=== PATIENT | male | born 1980 ===

== ENCOUNTER → 2024-08-04 | Outpatient (CLI) | payer OTHER ==
[~2024-08-04] MED LIST: TRAMADOL HCL50 MG PO
[2024-08-04 09:33] LABS: HEMATOCRIT 42.6 % (39.0-48.0); HEMOGLOBIN 14.8 g/dL (13-16.00); MEAN CELL VOLUME 82.8 fL (80.0-100.00); MEAN CORPUSCULAR HEMOGLOBIN 28.8 pg (27.00-32.0); MEAN CORPUSCULAR HGB CONC 34.8 g/dl (32.0-36.0); PLATELET COUNT 240 K/uL (150-450); RED BLOOD COUNT 5.14 M/uL (4.00-6.00); RED CELL DISTRIBUTION WIDTH 13.2 % (11.5-14.5)
[2024-08-04 10:04] LABS: ALBUMIN 4.3 gm/dL (3.4-5.0); BILIRUBIN TOTAL 0.5 mg/dL (0.3-1.2); CALCIUM 9.7 mg/dL (8.5-10.1); CHOL HDL RATIO 3.4 (0-5.0); CREATININE SERUM 1.01 mg/dL (0.70-1.30); GFR 80.25; GLOBULINA 3.6 G/DL (2.4-3.5); POTASSIUM 4.3 mEq/L (3.5-5.1); TOTAL PROTEIN 7.9 gm/dL (6.4-8.2)
[2024-08-05 10:05] LABS: ALPHA FETO PROTEIN 1.9 ng/mL (0.0-6.9)
[2024-08-05 12:09] LABS: HEPATITIS C VIRUS ANTIBODY Non Reactive (Non Reactive); hav igm Negative (Negative); hcv Non Reactive (Non Reactive); hep b c Negative (Negative); hep b s ag Negative (Negative)
== END | disposition home or self-care (01) ==
LOC: LAB 08:20
PROVIDERS: ATTEND General Practice
DX: D64.9 Anemia, unspecified (principal); Z11.3 Encounter for screening for infections with a predominantly sexual mode of transmission; A60.09 Herpesviral infection of other urogenital tract; B20 Human immunodeficiency virus [HIV] disease; A53.0 Latent syphilis, unspecified as early or late; A56.2 Chlamydial infection of genitourinary tract, unspecified; A63.8 Other specified predominantly sexually transmitted diseases; B18.8 Other chronic viral hepatitis; D50.8 Other iron deficiency anemias; J39.8 Other specified diseases of upper respiratory tract; N18.9 Chronic kidney disease, unspecified; R78.79 Finding of abnormal level of heavy metals in blood; E11.65 Type 2 diabetes mellitus with hyperglycemia; E78.2 Mixed hyperlipidemia; R42 Dizziness and giddiness; M15.0 Primary generalized (osteo)arthritis; R63.5 Abnormal weight gain; E03.8 Other specified hypothyroidism; M79.7 Fibromyalgia; Z00.00 Encounter for general adult medical examination without abnormal findings; K92.1 Melena; Z01.812 Encounter for preprocedural laboratory examination; N39.0 Urinary tract infection, site not specified; Z12.11 Encounter for screening for malignant neoplasm of colon; N40.0 Benign prostatic hyperplasia without lower urinary tract symptoms; E55.9 Vitamin D deficiency, unspecified; R97.8 Other abnormal tumor markers; N52.8 Other male erectile dysfunction; K86.1 Other chronic pancreatitis; N92.1 Excessive and frequent menstruation with irregular cycle; R10.2 Pelvic and perineal pain; N80.9 Endometriosis, unspecified; D49.0 Neoplasm of unspecified behavior of digestive system; C18.2 Malignant neoplasm of ascending colon

== ENCOUNTER 2025-01-16 08:30 | Outpatient (CLI) | payer OTHER ==
[2025-01-16 09:09] LABS: BASO % 1.0 % (0.1-1.2); EOS # 0.14 (0.04-0.54); EOS % 2.3 % (0.7-7.0); LYMPH # 2.17 (1.18-3.74); LYMPH % 35.5 % (19.3-53.1); MEAN PLATELET VOLUME 9.60 fl (9.4-12.4); MONO # 0.46 (0.24-0.82); MONO % 7.5 % (4.7-12.5); NEUT # 3.27 (1.56-6.13); NEUT % 53.4 % (34.0-71.1); RED CELL DISTRIBUTION WIDTH 12.3 % (11.6-14.4)
[2025-01-16 09:15] LABS: URINE APPEARANCE Clear; URINE BILIRRUBIN Negative (NEGATIVE); URINE BLOOD Negative; URINE COLOR Yellow; URINE GLUCOSE Negative (NEGATIVE); URINE KETONE Negative (NEGATIVE); URINE LEUKOCYTE Negative; URINE NITRATE Negative; URINE PROTEIN Negative (NEGATIVE); URINE UROBILINOGEN 0.2 E.U./dl
[2025-01-16 09:16] LABS: URINE BACTERIA 5.9 uL (0.0-1933); URINE WBC 2.1 uL (0.0-23.2)
[2025-01-16 09:35] LABS: URINE CAST 0.29 uL (0.0-1.40); URINE EPITHELIAL CELLS 0.7 uL (0.0-38.8); URINE RBC 1.7 uL (0.0-20.8)
[2025-01-16 10:18] LABS: ALT/SGPT 85.0 U/L (12-78); AST/SGOT 25.0 U/L (15-37); BILIRUBIN TOTAL 0.6 mg/dL (0.3-1.2); BUN CREA RATIO 16.0 (7.0-25.0); CHOL HDL RATIO 3.1 (0-5.0); CREATININE SERUM 0.9 mg/dL (0.70-1.30); FREE TRIODOTIRONINE 2.92 pg/ml (2.18-3.98); GFR 91.25; GLOBULINA 3.4 G/DL (2.4-3.5); GLUCOSE FASTING 100.0 mg/dL (65-100); HDL 54.0 mg/dl (40-60); LDL 75.0 mg/dl (0-130); OSMOLALITY SERUM 282.0 MOSM/KG (275-295); PROSTATIC SPECIFIC ANTIGEN 0.529 NG/ML (0.010-4.00); T4 FREE 0.94 NG/ML (0.76-1.46); TSH 0.994 uIU/mL (0.358-3.74); VLDL 39.0 (0-39)
[2025-01-16 11:00] LABS: VITAMIN D3 25 HYDROXY 66.96 ng/ml (30-120)
== END 2025-01-16 08:35 | disposition home or self-care (01) ==
LOC: LAB 08:30
PROVIDERS: ATTEND General Practice
DX: E11.9 Type 2 diabetes mellitus without complications (principal); K59.00 Constipation, unspecified; E55.9 Vitamin D deficiency, unspecified; E78.2 Mixed hyperlipidemia; E03.8 Other specified hypothyroidism; D51.0 Vitamin B12 deficiency anemia due to intrinsic factor deficiency; Z12.11 Encounter for screening for malignant neoplasm of colon; I11.9 Hypertensive heart disease without heart failure; R97.20 Elevated prostate specific antigen [PSA]; R53.81 Other malaise; R53.83 Other fatigue; A49.3 Mycoplasma infection, unspecified site; N34.2 Other urethritis

== ENCOUNTER → 2025-02-20 08:32 | Outpatient (CLI) | payer OTHER ==
[2025-02-20 08:55] LABS: BASO % 1.1 % (0.1-1.2); EOS # 0.19 (0.04-0.54); EOS % 3.3 % (0.7-7.0); LYMPH # 1.81 (1.18-3.74); LYMPH % 31.8 % (19.3-53.1); MEAN PLATELET VOLUME 9.80 fl (9.4-12.4); MONO # 0.70 (0.24-0.82); NEUT # 2.92 (1.56-6.13); NEUT % 51.1 % (34.0-71.1); RED CELL DISTRIBUTION WIDTH 12.4 % (11.6-14.4)
[2025-02-20 08:57] LABS: MONO % 12.3 % (4.7-12.5)
[2025-02-20 10:10] LABS: ALT/SGPT 105.0 U/L (12-78); AST/SGOT 39.0 U/L (15-37); BILIRUBIN TOTAL 0.56 mg/dL (0.3-1.2); BUN CREA RATIO 13.0 (7.0-25.0); CHOL HDL RATIO 3.4 (0-5.0); CREATININE SERUM 0.97 mg/dL (0.70-1.30); GFR 83.69; GLOBULINA 3.5 G/DL (2.4-3.5); GLUCOSE FASTING 98.0 mg/dL (65-100); HDL 53.0 mg/dl (40-60); LDL 73.0 mg/dl (0-130); OSMOLALITY SERUM 279.0 MOSM/KG (275-295); VLDL 54.0 (0-39)
== END | disposition home or self-care (01) ==
LOC: LAB 08:32
DX: E11.65 Type 2 diabetes mellitus with hyperglycemia (principal); R73.03 Prediabetes; D50.8 Other iron deficiency anemias; I10 Essential (primary) hypertension

== ENCOUNTER 2025-03-19 08:32 | Outpatient (CLI) | payer OTHER | END 2025-03-19 08:33 | disposition home or self-care (01) | LOC: RAD 08:32 | PROVIDERS: ATTEND Physical Medicine & Rehabilitation | DX: M25.512 Pain in left shoulder (principal) ==

== ENCOUNTER → 2025-05-25 06:35 | Outpatient (CLI) | payer OTHER ==
[2025-05-25 07:40] LABS: BASO % 1.4 % (0.1-1.2); EOS # 0.27 (0.04-0.54); EOS % 5.3 % (0.7-7.0); LYMPH # 2.10 (1.18-3.74); LYMPH % 41.6 % (19.3-53.1); MEAN PLATELET VOLUME 9.90 fl (9.4-12.4); MONO # 0.43 (0.24-0.82); MONO % 8.5 % (4.7-12.5); NEUT # 2.17 (1.56-6.13); NEUT % 43.0 % (34.0-71.1); RED CELL DISTRIBUTION WIDTH 12.3 % (11.6-14.4)
[2025-05-25 08:22] LABS: ALT/SGPT 105.0 U/L (12-78); AST/SGOT 31.0 U/L (15-37); BILIRUBIN TOTAL 0.41 mg/dL (0.3-1.2); BUN CREA RATIO 14.0 (7.0-25.0); CREATININE SERUM 0.95 mg/dL (0.70-1.30); GFR 85.73; GLOBULINA 3.7 G/DL (2.4-3.5); GLUCOSE FASTING 109.0 mg/dL (65-100); HDL 46.0 mg/dl (40-60); OSMOLALITY SERUM 278.0 MOSM/KG (275-295); VLDL 62.0 (0-39)
[2025-05-25 08:32] LABS: CHOL HDL RATIO 5.8 (0-5.0); LDL 158.0 mg/dl (0-130)
== END | disposition home or self-care (01) ==
LOC: LAB 06:35
PROVIDERS: ATTEND General Practice
DX: D50.8 Other iron deficiency anemias (principal); J39.8 Other specified diseases of upper respiratory tract; N18.9 Chronic kidney disease, unspecified; R78.79 Finding of abnormal level of heavy metals in blood; R74.01 Elevation of levels of liver transaminase levels; E11.65 Type 2 diabetes mellitus with hyperglycemia; E78.2 Mixed hyperlipidemia; R42 Dizziness and giddiness; M15.0 Primary generalized (osteo)arthritis; R63.5 Abnormal weight gain; E03.8 Other specified hypothyroidism; M79.7 Fibromyalgia; Z00.00 Encounter for general adult medical examination without abnormal findings; K92.1 Melena; Z01.812 Encounter for preprocedural laboratory examination; N39.0 Urinary tract infection, site not specified; Z12.11 Encounter for screening for malignant neoplasm of colon; N40.0 Benign prostatic hyperplasia without lower urinary tract symptoms; E55.9 Vitamin D deficiency, unspecified; R97.8 Other abnormal tumor markers; N52.8 Other male erectile dysfunction; K86.1 Other chronic pancreatitis; R10.20 Pelvic and perineal pain unspecified side; D49.0 Neoplasm of unspecified behavior of digestive system; B20 Human immunodeficiency virus [HIV] disease; C18.2 Malignant neoplasm of ascending colon